=== PATIENT | female | born 1985 | race Caucasian/White ===

== ENCOUNTER → 2024-12-24 11:34 | Outpatient (BNVA) | payer BC, SELFPAY | PROVIDERS: PCP Nurse Practitioner Family; Visit Provider Nurse Practitioner Family | DX: R10.12 Left upper quadrant pain (principal) | CPT/HCPCS: 74018 ==

== ENCOUNTER 2025-10-05 06:27 | Emergency (ER) | payer OTHER, BC, SELFPAY ==
[2025-10-05 06:29] VITALS: BP 133/88; PULSE 84; RESP 17; TEMP 36.4; O2SAT 96; BMI 34.7
--- NOTE | 2025-10-05 06:33 | US_ITS ---
WS: [id number] RIGHT UPPER QUADRANT ULTRASOUND HISTORY: Right upper quadrant pain, concern for cholecystitis COMPARISON: None available. Liver: 16.1 cm in length. Mild hepatic steatosis with areas of sparing. No mass. Portal Vein: Normal hepatopetal flow with monophasic waveform. Gallbladder: Normally distended gallbladder with no stones or wall thickening. CBD: 0.4 cm Pancreas: Normal size and echogenicity. Right kidney: 11.5 cm in length. Normal size and echogenicity. No hydronephrosis or mass. Aorta and IVC: Unremarkable abdominal aorta and IVC. No ascites. US/US gall bladder [id number] IMPRESSION: 1. Normal gallbladder. 2. Mild hepatic steatosis with areas of fatty sparing.
--- NOTE | 2025-10-05 06:34 | ED_ITS ---
HPI - Abdominal Pain 2 General: Chief Complaint: Abdominal Pain Stated Complaint: n/v/d, abd pain Time Seen by Provider: 10/05/25 06:30 History of Present Illness: 40-year-old female with no significant c hronic medical problems who presents to the emergency room with abdominal pain. She says this is similar to the biliary colic she has had in the past. She was seen by surgery and Thelma. She says she has a dissolvable tablet that when she takes it it gets rid of the pain and about 5 minutes in the nausea. However she is run out of this. She has been vomiting and severe pain in her right upper quadrant for several hours now. Related Data Home Medications ?Medication ?Instructions ?Recorded ?Confirmed cholecalciferol (vitamin D3) PO 08/22/21 12/24/24 famotidine PO 08/22/21 12/24/24 polaprezinc (zinc carnosine) PO 08/22/21 12/24/24 bisoprolol fumarate 5 mg tablet 5 mg PO DAILY 09/21/21 12/24/24 Previous Rx's ?Medication ?Instructions ?Recorded ondansetron 8 mg disintegrating 8 mg PO Q8H PRN nausea and 12/24/24 tablet vomiting #20 tabs hydrocodone 5 mg-acetaminophen 325 1 tab PO Q6H PRN pa in #20 tabs 10/05/25 mg tablet hyoscyamine sulfate 0.125 mg 0.125 mg PO Q6H PRN dyspe psia #30 10/05/25 sublingual tablet (Oscimin SL) tabs ondansetron 8 mg disintegrating 8 mg PO Q6H #14 tabs 1 12/06/24 tablet Allergies Allergy/AdvReac Type Severity Reaction Status Date / Time acetaminophen (From Tylenol) AdvReac Mild liver Verified 12/24/24 11:07 Review of Systems 2 Narrative: Constitutional symptoms: Negative except as documented in HPI. Skin symptoms: Negative except as documented in HPI. Eye symptoms: Negative except as documented in HPI. ENMT symptoms: Negative except as documented in HPI. Respiratory symptoms: Negative except as documented in HPI. Cardiovascular symptoms: Negative except as documented in HPI. Gastrointestinal symptoms: Negative except as documented in HPI. Genitourinary symptoms: Negative except as documented in HPI. Musculoskeletal symptoms: Negative except as documented in HPI. Neurologic symptoms: Negative except as documented in HPI. Psychiatric symptoms: Negative except as documented in HPI. Endocrine symptoms: Negative except as documented in HPI. PFSH ED 2 PFSH: Medical History (Updated 10/05/25 @ 08:20 by Margaret Hunter MD) Pacemaker History of cardiac pacemaker Social History Smoking and tobacco/nicotine status: never used tobacco/nicotine Alcohol intake: current Alcohol intake frequency: holidays/special occasions only Substance/Drug Use: current Substance/Drug use frequency: daily Physical Exam 2 Narrative: EXAM NARRATIVE: General: Alert, no acute distress. Skin: Warm, dry. Head: Normocephalic, atraumatic. Neck: Supple, trachea midline. Eye: Extraocular movements are intact. Ears, nose, mouth and throat: Tacky oral mucosa Cardiovascular: Regular, Normal peripheral perfusion. Respiratory: Lungs are clear to auscultation, respirations are non-labored, breath sounds are equal, Symmetrical chest wall expansion. Gastrointestinal: Soft, tenderness to palpation in the right upper quadrant, Non distended Musculoskeletal: Normal ROM, no deformity. Neurological: Alert and oriented, No focal neurological deficit observed. Psychiatric: Cooperative, appropriate mood & affect. Course 2 Vital Signs: Vital signs: Vital Signs Temperature 97.6 F 10/05/25 06:29 Pulse Rate 65 10/05/25 08:30 Respiratory Rate 17 10/05/25 06:29 Blood Pressure 113/81 10/05/25 08:30 Pulse Oximetry 92 10/05/25 08:30 Oxygen Delivery Me thod Room Air 10/05/25 06:29 MDM - Abdominal Pain Medical Decision Making Medical decision making Patient's reason for coming to the emergency room: Abdominal pain Social determinants: Patient works here in the hospital I reviewed the patient's medical record. No chronic medical problems. Follows with Charity Modi and family practice here. I reviewed the patient's current home meds No listed chronic medications. Alternate historians: None Differential diagnosis for patient presenting with right upper quadrant abdominal pain including but not limited to and based on the above HPI, review of systems and physical exam: Cholelithiasis or cholecystitis. Hepatitis. Diverticulitis. Constipation. Ureterolithiasis. Urinary tract infection. Appendicitis. colitis. small bowel obstruction. crohn's flare. pancreatitis. gastritis. peptic ulcer. Aortic disection. Workup including imaging and lab work replaced based on the above differential, history and exam to evaluate differential diagnosis Lab Review: Laboratory results were reviewed and interpreted by myself the emergency room physician. No leukocytosis. No anemia. No renal failure. Liver enzymes are normal. Urinalysis is negative for infection. Ultrasound gallbladder: No acute process. No visualized stones. This was reviewed and interpreted by myself the emergency room physician. I also reviewed the radiology report. Assessment of risk: Level of risk: Low risk patient Hospitalization considerations: No indication for hospitalization today. Reexamination: Dilaudid and Zofran helped some. However I gave her a dose of hyoscyamine which seem to alleviate her symptoms more completely. She is a bit somnolent. No increased work of breathing. No altered mental status. Assessment and plan: Biliary colic Dehydration ?Dilaudid, Zofran, fluids, dissolvable hyoscyamine - Discharged home - Discussed plan with patient. Answered any questions. - Evaluation and treatment of this problem were appropriate in the emergency setting. Lab Data 10/05/25 06:41 10/05/25 06:41 Labs/Radiology: Radiology Impressions Gallbladder Ultrasound 10/05/25 06:33 IMPRESSION: 1. Normal gallbladder. 2. Mild hepatic steatosis with areas of fatty sparing. Laboratory Results WBC 7.14 10^3/uL (3.29-11.43) 10/05/25 06:41 RBC 4.90 10^6/uL (3.85-5.65) 10/05/25 06:41 Hgb 14.40 g/dL (11.27-16.99) 10/05/25 06:41 Hct 44.6 % (36-47) 10/05/25 06:41 MCV 91.0 fl (85-98) 10/05/25 06:41 MCH 29.4 pg (27-33) 10/05/25 06:41 MCHC 32.3 g/dL (30-55) 10/05/25 06:41 RDW 12.5 % (12.1-15.1) 10/05/25 06:41 Plt Count 296 10^3/cmm (157-399) 10/05/25 06:41 MPV 9.9 fL (7.4-10.4) 10/05/25 06:41 Neut % (Auto) 51.6 % 10/05/25 06:41 Lymph % (Auto) 34.2 % 10/05/25 06:41 Bucks % (Auto) 7.3 % 10/05/25 06:41 Eos % (Auto) 5.6 % 10/05/25 06:41 Baso % (Auto) 0.7 % 10/05/25 06:41 Neut # (Auto) 3.69 10^3/uL (1.8-7.7) 10/05/25 06:41 Lymph # (Auto) 2.4 10^3/uL (0.8-4.8) 10/05/25 06:41 Bucks # (Auto) 0.5 10^3/uL (0.2-0.9) 10/05/25 06:41 Eos # (Auto) 0.4 10^3/uL (0.0-0.8) 10/05/25 06:41 Baso # (Auto) 0.1 10^3/uL (0.0-0.1) 10/05/25 06:41 Nucleated RBC % (auto) 0 % 10/05/25 06:41 Nucleated RBCs # 0.0 /100WBC 10/05/25 06:41 Sodium 139 mmol/L (136-145) 10/05/25 06:41 Potassium 4.3 mmol/L (3.5-5.1) 10/05/25 06:41 Chloride 103 mmol/L (98-107) 10/05/25 06:41 Carbon Dioxide 27 mmol/L (22-29) 10/05/25 06:41 Anion Gap 13.3 (5-19) 10/05/25 06:41 BUN 10 mg/dL (6-20) 10/05/25 06:41 Creatinine 0.8 mg/dL (0.5-0.9) 10/05/25 06:41 GFR Calculation 79.9 mL/min (90-130) L 10/05/25 06:41 Glucose 108 mg/dL (65-115) 10/05/25 06:41 Calculated Osmolality 288 mOsm/kg (285-295) 10/05/25 06:41 Lactic Acid 1.2 mmol/L (0.5-2.2) 10/05/25 06:41 Calcium 9.1 mg/dL (8.5-10.5) 10/05/25 06:41 Total Bilirubin 0.2 mg/dL (0.15-1.2) 10/05/25 06:41 AST 21 U/L (0-32) 10/05/25 06:41 ALT 26 U/L (0-33) 10/05/25 06:41 Alkaline Phosphatase 53 U/L (35-105) 10/05/25 06:41 Total Protein 7.6 g/dL (6.6-8.7) 10/05/25 06:41 Albumin 4.7 g/dL (3.5-5.2) 10/05/25 06:41 Globulin 2.9 g/dL (1.3-4.6) 10/05/25 06:41 HCG, Qual Negative (Negative) 10/05/25 06:41 Urine Color Yellow (Yellow) 10/05/25 07:42 Urine Appearance Clear (CLEAR) 10/05/25 07:42 Urine pH 5.5 (5-7) 10/05/25 07:42 Ur Specific [place] 1.017 (1.005-1.030) 10/05/25 07:42 Urine Protein Negative (Negative) 10/05/25 07:42 Urine Glucose (UA) Negative (Normal) 10/05/25 07:42 Urine Ketones Negative (Negative) 10/05/25 07:42 Urine Blood Negative (Negative) 10/05/25 07:42 Urine Nitrate Negative (Negative) 10/05/25 07:42 Urine Bilirubin Negative (Negative) 10/05/25 07:42 Urine Urobilinogen 0.2 mg/dL (Negative) 10/05/25 07:42 Ur Leukocyte Esterase Negative (Negative) 10/05/25 07:42 Urine RBC 0-2 /hpf (0-2) 10/05/25 07:42 Urine WBC 0-5 /hpf (0-5) 10/05/25 07:42 Ur Squamous Epith Cells 0-5 /hpf (0-5) 10/05/25 07:42 Amorphous Sediment Not Reportable 10/05/25 07:42 Urine Bacteria None seen /hpf (NONE) 10/05/25 07:42 Hyaline Casts 0-4 /lpf H 10/05/25 07:42 All radiology interpretation(s) finalized by discharge Discharge Plan Discharge Patient Disposition: Home Clinical Impression: Biliary colic, Dehydration Condition: Stable Prescriptions: New hydrocodone-acetaminophen 5-325 mg tablet 1 tab PO Q6H PRN (Reason: pain) Qty: 20 0RF ondansetron 8 mg tablet,disintegrating 8 mg PO Q6H Qty: 14 0RF Rx Instructions: Take 1/2-1 tab every 6 hours as needed for nausea and vomiting hyoscyamine sulfate [Oscimin SL] 0.125 mg tablet, sublingual 0.125 mg PO Q6H PRN (Reason: dyspepsia) Qty: 30 0RF No Action polaprezinc (zinc carnosine) PO cholecalciferol (vitamin D3) PO famotidine PO bisoprolol fumarate 5 mg tablet 5 mg PO DAILY ondansetron 8 mg tablet,disintegrating 8 mg PO Q8H PRN (Reason: nausea and vomiting) Qty: 20 0RF Discharge Orders: Discharge ED (Routine); Ordered 10/05/25 Ordered By: Margaret Hunter Referrals: Charity Modi NP [Primary Care Provider, Family Practice] Patient Instructions: Biliary Colic (ED), Abdominal Pain (ED), Opioid Safety, Pain Management, Patient Portal & Trevor Instructions Activity Restrictions/Additional Instructions: Thank you for choosing [facility] for your healthcare needs today. You have been screened and evaluated and felt safe for discharge. Health conditions do change or evolve sometimes and as such it is important that you follow up with your Primary Doctor to be re checked, 3-5 days is a general good time frame for follow up. You are always welcome to return to the ED for re assessment if your symptoms are worsening or you have new concerns. (Please note that included in your discharge packet is information concerning opioid safety and pain management. This information is given to all patients who are discharged from the ER regardless of their discharge diagnosis or the medicines they usually take or are prescribed.) Print Language: Wolof Coding Level of Care Code ED Aircraft Maintenance Supervisor for Gus Mckinney
--- OUTSIDE RECORDS SUMMARY | 2025-10-05 06:35 | XMS_ITS | Patient Health Record ---
Author Organization [facility] Address [address] [place] [address] Care Team Providers Care Seed And Fertilizer Specialist Name Role Phone Charity Modi APRN Primary Care Provider Unavail able Luis F Collins Unavailable [phone] Allergies No Known Allergies Reason For Referral No Information Medications Medication SIG (Take, Route, Frequency, Duration) Notes Start Date End Date Status clomiPHENE Citrate 50 MG Tablet 2 tablets Orally 5 days once a month; Duration: 5 days Not-Taking Bisoprolol Fumarate 5 MG Tablet 1 tablet Orally Once a day as needed; Duration: 90 days 2021 Not-Taking Hyoscyamine Sulfate 0.125 MG Tablet Sublingual DISSOLVE 1 TABLET BY MOUTH EVERY 4 HOURS NEEDED FOR SPASMS Sublingual; Duration: 5 Days Active medroxyPROGESTERone Acetate 10 MG Tablet TAKE 1 TABLET BY MOUTH EVERY DAY WITH FOOD FOR 10 DAYS Orally Once a day, as needed; Duration: 10 Not-Taking Immunizations Vaccine Route Administration Date Status Comme nts Influenza (whole), CPT 77077 Inactive Unknown 01/15/2018 Administered Social History Tobacco Use: Social History Observation Description Date Details (start date - stop date) Unknown Social History Tobacco Use: Social Info Question Answer Notes xTobacco Use/Smoking Are you a Uses tobacc o in other forms Tobacco use other than smoking: How often do you smoke? twice a day marijuana Additional Details Category Social Info Options Details zzMigrated Social History Migrated Social History Smoking Status:Never smoked tobacco (finding) Section Notes: current smoker alcohol no caffeine yes medical marijuana alcohol no caffeine yes medical marijuana alcohol no caffeine yes medical marijuana alcohol no caffeine yes medical marijuana alcohol no caffeine yes current smoker alcohol no caffeine yes current smoker alcohol no caffeine yes current smoker alcohol no caffeine yes current smoker alcohol no caffeine yes current smoker alcohol no caffeine yes current smoker alcohol no caffeine yes Problems Problem Type SNOMED Code ICD Code Onset Dates Problem Status W/U Status Risk Notes Problem Information temporarily unavailable Sick sinus syndrome (I49.5) Active confirmed Problem Information temporarily unavailable Female infertility associated with anovulation (N97.0) Active confirmed Problem Information temporarily unavailable Palpitations (R00.2) Active confirmed Problem Information temporarily unavailable Presence of cardiac pacemaker (Z95.0) Active confirmed Problem Information temporarily unavailable Sick sinus syndrome (I49.5) Active confirmed Problem Information temporarily unavailable Essential hypertension (I10) Active confirmed Problem Information temporarily unavailable Infertility associated with anovulation (N97.0) Active confirmed Problem Information temporarily unavailable Infertility counseling (Z31.69) Active confirmed Problem Information temporarily unavailable Pacemaker (Z95.0) Active confirmed Problem Information temporarily unavailable Paroxysmal SVT (supraventricula r tachycardia) (I47.1) Active confirmed Vital Signs Heart Rate 84 /min 12/29/2024 Blood pressure diastolic 86 mm Hg 12/29/2024 Oximetry 98 % 12/29/2024 Weight-kg 100.97 kg 12/29/2024 Height 66 in 12/29/2024 Blood pressure systolic 130 mm Hg 12/29/2024 Weight 222.6 lbs 12/29/2024 BMI 35.92 kg/m2 12/29/2024 Encounters Encounter Location Date Provider Diagnosis [address] [id number] 12/29/2024 Luis F Collins Sick sinus syndrome I49.5 and Pacemaker Z95.0 [facility] [address] [place] [id number] 11/08/2024 Luis F Dennis Assessments Encounter Date Diagnosis (ICD Code) Assessment Notes Treatment Notes Treatment Clinical Notes Section Notes 12/29/2024 Sick sinus syndrome (ICD-10 - I49.5) 12/29/2024 Pacemaker (ICD-10 - Z95.0) Plan Of Treatment Pending Test Test Name Order Date Progesterone (B) 96471 11/05/2022 Electrocardiogram (EKG) - [id number] 03/12/20 Next Appt Details Provider Name:Luis F Oromesha , 01/04/2026 01:15:00 PM, [address] [place] [address], [place], [id number], Insurance Providers Payer Name Payer Address Payer Phone Subscriber Number Group Number Insured Name Patient Relationship to Insured Coverage Start Date Coverage End Date [employer] [place] [address] [place] [address] [id number] ARSEINO Mitchell Self - patient is the insured Medical (General) History Medical History History ICD Code sinus dev syncope migraines sick sinus syndrome Covid 04/2021, 07/2021 Covid vaccine - no Surgical History Surgery Date(Month/Year) dual chamber pacemaker [facility] 08/2021 c section Hospitalization History Reason Date(Month/Year) ER chest pain, diagnosed gallbladder 12/06 [facility] [place] pacemaker [place] 08/2021
[2025-10-05] MEDS: ondansetron 2 mg/ML SDV 2 mL 4 MG IVP (06:45)
[2025-10-05] MEDS: HYDROmorphone 0.5 MG/0.5 ML INJ 1 MG IVP (06:49)
[2025-10-05 06:58] LABS: Hematocrit 44.6 % (36-47); Hemoglobin 14.40 g/dL (11.27-16.99); Mean Corpuscular HGB Conc 32.3 g/dL (30-55); Mean Corpuscular Hemoglobin 29.4 pg (27-33); Mean Corpuscular Volume 91.0 fl (85-98); Nucleated Red Blood Cells % 0 %; Platelet Count 296 10^3/cmm (157-399); Red Blood Count 4.90 10^6/uL (3.85-5.65); White Blood Count 7.14 10^3/uL (3.29-11.43)
[2025-10-05 07:10] LABS: HCG, Serum Qual Negative (Negative)
[2025-10-05 07:14] LABS: Lactic Sepsis W/Reflex 1.2 mmol/L (0.5-2.2)
[2025-10-05 07:15] LABS: Alanine Aminotransferase 26 U/L (0-33); Albumin Level 4.7 g/dL (3.5-5.2); Alkaline Phosphatase 53 U/L (35-105); Anion Gap 13.3 (5-19); Aspartate Amino Transferase 21 U/L (0-32); Blood Urea Nitrogen 10 mg/dL (6-20); Calcium 9.1 mg/dL (8.5-10.5); Carbon Dioxide 27 mmol/L (22-29); Chloride 103 mmol/L (98-107); Globulin 2.9 g/dL (1.3-4.6); Glucose 108 mg/dL (65-115); Osmolality Calculated 288 mOsm/kg (285-295); Potassium 4.3 mmol/L (3.5-5.1); Sodium 139 mmol/L (136-145); Total Protein 7.6 g/dL (6.6-8.7)
[2025-10-05 07:57] LABS: Glucose Urine UA Negative (Normal); Nitrate Urine Negative (Negative); Specific Gravity, Urine 1.017 (1.005-1.030)
[2025-10-05] MEDS: hyoscyamine ODT 0.125 mg Tablet PO (08:02)
[2025-10-05 08:30] VITALS: BP 113/81; PULSE 65; O2SAT 92
== END 2025-10-05 08:31 | disposition home or self-care (01) ==
PROVIDERS: Emergency Provider Emergency Medicine; PCP Nurse Practitioner Family
DX: K80.50 Calculus of bile duct without cholangitis or cholecystitis without obstruction (principal); E86.0 Dehydration; Z95.0 Presence of cardiac pacemaker
CPT/HCPCS: 76705; 80053; 81001; 83605; 84703; 85025; 96361; 96374; 96375; 99285; J1171; J2405; J7030; J9999